=== PATIENT | male | born 1960 | race African-American/Black ===

== ENCOUNTER 2017-10-30 08:56 | Emergency (ER) | payer MEDICARE, OTHER ==
[2017-10-30] MEDS ORDERED: predniSONE 20 MG TAB ONE (09:33)
--- NOTE | 2017-10-30 11:47 | RAD ---
CERVICAL SPINE AP AND LATERAL STANDARD: Date: 10/30/17 HISTORY: Pain. COMPARISON: None. FINDINGS: The lateral radiograph only demonstrates the cervical spine to the level of C6. No acute fracture or malalignment. There is mild narrowing of the C5-6 disc space. Uncinate process hypertrophy throughout the cervical spine. Paraspinal soft tissues are unremarkable. IMPRESSION: Mild degenerative changes. No acute abnormality. POS: PANKAJ
== END 2017-10-30 10:20 | disposition home or self-care (01) ==
LOC: MADERS 08:56
DX: M62.830 Muscle spasm of back (principal); F32.9 Major depressive disorder, single episode, unspecified; K21.9 Gastro-esophageal reflux disease without esophagitis; E78.00 Pure hypercholesterolemia, unspecified; F17.210 Nicotine dependence, cigarettes, uncomplicated; Z79.899 Other long term (current) drug therapy; Z79.891 Long term (current) use of opiate analgesic; Z79.82 Long term (current) use of aspirin
CPT/HCPCS: 72040; J7506

== ENCOUNTER 2017-11-01 11:12 | Emergency (ER) | payer MEDICARE, OTHER | END 2017-11-01 12:15 | disposition home or self-care (01) | LOC: MADERS 11:12 | DX: S46.012A Strain of muscle(s) and tendon(s) of the rotator cuff of left shoulder, initial encounter (principal); Z79.899 Other long term (current) drug therapy; Z79.82 Long term (current) use of aspirin; X50.0XXA Overexertion from strenuous movement or load, initial encounter | CPT/HCPCS: 99282 ==

== ENCOUNTER 2018-03-04 10:03 | Emergency (ER) | payer MEDICARE, OTHER | END 2018-03-04 10:46 | disposition home or self-care (01) | LOC: MADERS 10:03 | DX: J20.9 Acute bronchitis, unspecified (principal); K21.9 Gastro-esophageal reflux disease without esophagitis; E78.5 Hyperlipidemia, unspecified; I10 Essential (primary) hypertension; F43.10 Post-traumatic stress disorder, unspecified; F17.210 Nicotine dependence, cigarettes, uncomplicated; Z71.6 Tobacco abuse counseling; Z79.82 Long term (current) use of aspirin; Z79.891 Long term (current) use of opiate analgesic; Z79.899 Other long term (current) drug therapy | CPT/HCPCS: 99406; J7620 ==

== ENCOUNTER 2018-06-03 04:50 | Emergency (ER) | payer MEDICARE, OTHER ==
--- NOTE | 2018-06-03 07:24 | RAD ---
CHEST 1 VIEW: Date: 06/03/18 INDICATION: Chest pain. COMPARISON: None. FINDINGS: Lungs are clear. Heart size accentuated by exam technique. No definite acute osseous abnormality is e vident. There is an ACDF plate involving the lower cervical spine. IMPRESSION: No definite acute cardiopulmonary abnormality. POS: BH
== END 2018-06-03 05:26 | disposition home or self-care (01) ==
LOC: MADERS 04:50
DX: R07.81 Pleurodynia (principal); K21.9 Gastro-esophageal reflux disease without esophagitis; E78.5 Hyperlipidemia, unspecified; F43.10 Post-traumatic stress disorder, unspecified; F17.210 Nicotine dependence, cigarettes, uncomplicated; Z79.82 Long term (current) use of aspirin; Z79.899 Other long term (current) drug therapy; Z79.891 Long term (current) use of opiate analgesic
CPT/HCPCS: 71045

== ENCOUNTER 2018-08-07 15:52 | Outpatient (CLI) | payer MEDICARE, OTHER ==
--- NOTE | 2018-08-07 16:24 | RAD ---
Exam: 3 views lumbar spine HISTORY: Acute right-sided mid and low back pain. COMPARISON: None FINDINGS: Straightening of normal lumbar lordosis. No fracture. Vertebral body height is maintained. Disc space heights are preserved. IMPRESSION: Unremarkable lumbar spine radiograph series. Straightening of normal lumbar lordosis is p resumed to be due to patient position or muscle spasm. Additional imaging if clinically warranted.
--- NOTE | 2018-08-07 17:49 | RAD ---
THORACIC SPINE THREE VIEWS: 08/07/18 HISTORY: Acute right sided mid to lower back pain. FINDINGS: AP, upper lateral and lower lateral views of the thoracic spine demonstrate twelve thoracic type vert ebral bodies. Vertebral body height is maintained. No fracture. Mild loss of disc space height and os teophyte formation. Cervical fusion hardware is incompletely evaluated. IMPRESSION: No significant degenerative change or fracture with regards to the thoracic spine. POS: GINA
== END 2018-08-07 15:53 | disposition home or self-care (01) ==
LOC: MADRAD 15:52
PROVIDERS: ATTEND Family Medicine
DX: M54.5 Low back pain (principal)
CPT/HCPCS: 72072; 72100